=== PATIENT | female | born 1950 | race African-American/Black ===

== ENCOUNTER → 2018-07-24 | Outpatient (REF) | payer MEDICARE, OTHER ==
[~2018-07-24] MED LIST: AMLODIPINE10 MG PO; AMLODIPINE5 MG PO; ASPIRIN LOW DOS81 M2 PO; ATORVASTATIN CA20 MG PO; BRILINTA90 MG PO; COREG CR80 MG PO; COREG25 MG PO; CYPROHEPTAD4 MG OR; DARVOCET-N100 MG OR; DOXAZOSIN4 M1 PO; ELIQUIS5 MG PO; ENALAPRIL10 MG OR; EQ ASPIRIN81 M1 PO; FLEXERIL OR; FLEXERIL5 MG OR; GABAPENTIN100 MG PO; HCTZ/TRIAMT1 TA1 PO; IMURAN50 MG OR; IMURAN50 MG PO; IRON325 MG PO; KLOR-CON M2020 MEQ OR; LIPITOR10 MG PO; LIPITOR40 MG OR; LIPITOR40 MG PO; LIPITOR80 MG PO; LISINOPRIL20 MG PO; LOPRESSOR50 M1 PO; LYRICA75 MG PO; MAXZIDE-25MG1 COMBO PO; MEGACE40 MG OR; MEGACE40 MG PO; METOPROLOL TART50 MG PO; NITROSTAT0.4 MG SL; NORVASC10 M1 PO; PERCOCET 5/325M1 TAB PO; PERIACTIN4 MG PO; PREDNISONE1 MG PO; PREDNISONE2.5 MG OR; PREDNISONE2.5 MG PO; PREDNISONE5 MG PO; PRILOSEC40 MG PO; PRINIVIL20 MG OR; PROCARDIA XL90 MG OR; SINEQUAN10 MG PO; TEMAZEPAM15 MG PO; ULTRACET OR; ULTRAM50 M1 PO; VALACYCLOVIR1 GM PO; [UNRECOGNIZED DRUG - OTHER] OR
[2018-07-24 10:16] LABS: ALBUMIN 4.1 g/dL (3.2-5.0); BILIRUBIN, TOTAL 0.3 mg/dL (0.0-1.4); CHOLESTEROL HDL RATIO 2.6 (<4.4 (CALC)); CREATININE 1.1 mg/dL (0.5-1.0); HEMOGLOBIN 12.8 g/dl (12.0-16.0); IMMATURE GRANULOCYTES 0.2 % (0.0-5.0); MEAN CELL VOLUME 93.8 fL CALC (80.0-100.0); MEAN CORPUSCULAR HGB 29.3 pG CALC (26.0-32.0); MEAN CORPUSCULAR HGB CONC 31.2 g/L CALC (32.0-36.0); NEUT# 2.55 thou/uL (2.00-7.15); POTASSIUM 4.1 mmol/l (3.5-5.1); RED BLOOD COUNT 4.37 mill/uL (4.20-5.60); RED CELL DISTRI WIDTH 15.5 % (11.5-15.5); TOTAL PROTEIN 7.5 g/dL (6.3-8.2)
== END | disposition home or self-care (01) ==
LOC: LAB 09:32
PROVIDERS: ATTEND Internal Medicine Geriatric Medicine
DX: I10 Essential (primary) hypertension (principal); E11.9 Type 2 diabetes mellitus without complications

== ENCOUNTER → 2018-08-13 | Outpatient (REF) | payer MEDICARE, OTHER ==
[2018-08-13 09:31] LABS: HEMOGLOBIN 12.6 g/dl (12.0-16.0); IMMATURE GRANULOCYTES 0.2 % (0.0-5.0); MEAN CELL VOLUME 93.6 fL CALC (80.0-100.0); MEAN CORPUSCULAR HGB 28.8 pG CALC (26.0-32.0); MEAN CORPUSCULAR HGB CONC 30.7 g/L CALC (32.0-36.0); NEUT# 2.49 thou/uL (2.00-7.15); RED BLOOD COUNT 4.38 mill/uL (4.20-5.60); RED CELL DISTRI WIDTH 15.9 % (11.5-15.5)
== END | disposition home or self-care (01) ==
LOC: LAB 08:41
PROVIDERS: ATTEND Internal Medicine Rheumatology
DX: M06.4 Inflammatory polyarthropathy (principal); Z79.899 Other long term (current) drug therapy

== ENCOUNTER 2024-01-15 15:39 | Emergency (ER) | payer MEDICARE, OTHER ==
[~2024-01-15] VITALS: Ht 167.6 cm; Wt 68.0 kg
[2024-01-15] VITALS (18 sets, daily range): BP systolic 135–178; BP diastolic 75–102
[2024-01-15] MEDS ORDERED: ASPIRIN 81 MG/TAB PO ONE (15:45)
[2024-01-15] MEDS ORDERED: cefTRIAXone SODIUM 2 GM in SODIUM CHLORIDE 0.9% 100 ML IV ONE (16:05)
[2024-01-15] MEDS ORDERED: AZITHROMYCIN 500 MG in SODIUM CHLORIDE 0.9% 250 ML IV ONE (16:05)
[2024-01-15 16:09] LABS: BASO% 0.3 % (0-3); EOS% 0.4 % (0-8); HEMATOCRIT 38.3 % (37.0-47.0); HEMOGLOBIN 11.7 g/dl (12.0-16.0); IMMATURE GRANULOCYTES 0.6 % (0.0-5.0); LYMPH% 11.1 % (15-41); MEAN CELL VOLUME 91.8 fL CALC (80.0-100.0); MEAN CORPUSCULAR HGB 28.1 pG CALC (26.0-32.0); MEAN CORPUSCULAR HGB CONC 30.5 g/dL CAL (32.0-36.0); MONO% 10.3 % (2-13); NEUT# 7.88 thou/uL (2.00-7.15); NEUT% 77.3 % (42-76); RED BLOOD COUNT 4.17 mill/uL (4.20-5.60); RED CELL DISTRI WIDTH 15.3 % (11.5-15.5)
[2024-01-15 16:25] LABS: ALBUMIN 3.8 g/dL (3.2-5.0); CREATININE 1.3 mg/dL (0.5-1.0); POTASSIUM 3.8 mmol/l (3.5-5.1); TOTAL PROTEIN 7.7 g/dL (6.3-8.2)
[2024-01-15 16:30] LABS: BILIRUBIN, TOTAL 0.6 mg/dL (0.02-1.3)
[2024-01-15] MEDS ORDERED: ACETAMINOPHEN 500 MG TAB PO ONE (16:35)
[2024-01-15] MEDS ORDERED: ONDANSETRON HCl 4 MG/2 ML SDV IV ONE (16:40)
[2024-01-15] MEDS ORDERED: SODIUM CHLORIDE 0.9% 1,000 ML IV ONE (17:50)
[2024-01-15] MEDS ORDERED: ENOXAPARIN SODIUM 100 MG/ML SYR SC ONE (18:15)
[2024-01-15] MEDS ORDERED: LABETALOL HCL 100 MG/20 ML VIAL IV ONE (19:00)
== END 2024-01-15 21:29 | disposition short-term general hospital (02) ==
LOC: ED 15:39
PROVIDERS: Family Medicine
DX: I21.4 Non-ST elevation (NSTEMI) myocardial infarction (principal); U07.1 COVID-19; J12.82 Pneumonia due to coronavirus disease 2019; I10 Essential (primary) hypertension; Z95.5 Presence of coronary angioplasty implant and graft
CPT/HCPCS: J1650; Q9967